=== PATIENT | female | born 2000 | race Caucasian/White ===

== ENCOUNTER 2025-08-15 09:02 | Emergency (ER) | payer OTHER, SELFPAY ==
[2025-08-15 09:04] VITALS: BP 115/70; PULSE 91; RESP 16; TEMP 36.8; O2SAT 99; BMI 31.4
--- NOTE | 2025-08-15 09:23 | CT_ITS ---
PROCEDURE: CTA CHEST W/WO CONTRAST 08/15/2025 REASON FOR EXAM: PULMONARY EMBOLISM TECHNIQUE: Procedure Code: [id number] Modality: CT Procedure: CTA CHEST W/WO CONTRAST Multiplanar Sagittal and Coronal images were obtained. 3D post processing was performed CONTRAST: Isovue 370 VOLUME: 100 mL One or more dose reduction techniques were used (e.g., Automated exposure control, adjustment of the mA and/or kV according to patient size, use of iterative reconstruction technique). RADIATION DOSE SUMMARY: CTDlvol: 29 mGy DLP: 208 mGycm COMPARISON: None # of known CTs in the past 12 months: 0 # of known Cardiac Nuclear Medicine Studies in the past 12 months: 0 FINDINGS: Thoracic Aorta: No evidence of aortic dissection or rupture. Heart: Normal-size. No pericardial effusion Pulmonary Vessels: Timing and quality of the contrast bolus is diagnostic. There is no evidence of acute or chronic pulmonary embolus in the main, central, proximal segmental, interlobar pulmonary arteries. The distal segmental arteries are limited by respiratory motion artifact. Hardware: None Lymph nodes: Reactive subcarinal lymph node is 10 mm in short axis. Lungs and Airways: Respiratory motion artifact. Mucous is shown within the segmental bronchi of the inferior lingula, right middle lobe and both lower lobes with surrounding bronchial wall thickening, subsegmental atelectasis and acinar opacities. Pleura: No pleural effusion or pneumothorax Upper Abdomen: Unremarkable Bones: Unremarkable CT/CTA Chest W/WO Contrast IMPRESSION: 1. No evidence of acute aortic pathology. 2. No evidence of acute or chronic pulmonary embolus centrally and in the prox imal segmental pulmonary arteries. The mid and distal segmental pulmonary arteries are limited by respiratory motion particula rly in the lower lobes. 3. Mild bronchial wall thickening, segmental bronchial mucoid impaction, small airways disease mainly in the lower lobes, inferior lingula and right middle lobe. Favor are mucoid impaction but infecti ous etiologies including atypical organisms like JENNIFER/MAC and fungal infection like coccidioidomycosis are in the differential. Reading Location: [id number]
--- NOTE | 2025-08-15 09:24 | EKG12_ITS ---
Test Reason : CP Blood Pressure : */* mmHG Vent. Rate : 89 BPM Atrial Rate : 89 BPM P-R Int : 182 ms QRS Dur : 96 ms QT Int : 374 ms P-R-T Axes : 37 58 25 degrees QTcB Int : 455 ms Normal sinus rhythm Normal ECG Confirmed by DANO SOARES, KAILEE ([id number]), video editor SILVER ALDRICH ([id number]) on 08/18/2025 6:58:48 AM Referred By: Confirmed By: KAILEE MATSON MD
[2025-08-15 09:34] LABS: Hematocrit 34.2 % (37-47); Hemoglobin 11.1 g/dL (12.0-15.0); Immature Granulocytes Count 0.020 X10^3/uL (0.0-0.0); Mean Corp Hgb Conc 32.5 g/dL (32-36); Mean Corpuscular Volume 89.3 fL (81-99); Mean Platelet Vol. 8.5 fl (6.2-12.0); NRBC Flagged by Analyzer 0 % (0-5); Platelet Count 287 K/mm3 (150-450); RBC Distribution Width CV 15.0 % (11.6-14.6); RBC Distribution Width SD 47.7 fl (35.1-43.9); Red Blood Count 3.83 M/mm3 (4.2-5.4); White Blood Count 6.4 K/mm3 (4.4-11.0)
--- NOTE | 2025-08-15 09:38 | ED.VIS.CHEST ---
HPI History of Present Illness Chief Complaint: Chest Pain Informant: patient and spouse/S.O. Narrative Narrative: 25-year-old female presenting to the emergency room with a chief complaint of left-sided chest pain. Patient states she is about 10 weeks . 2 weeks ago she was diagnosed with right sided pulmonary embolism at [facility]. She was admitted to their hospital and underwent echocardiogram which showed an estimated right atrial pressure of 8 left ventricle with an EF of 50 to 55% no regional wall motion abnormalities. She was eventually transferred to [facility] and discharged home on Lovenox. She states that the pain was sharp and pleuritic on the right side but is now on the left side. She has noted the interval development of a cough that is sometimes productive of a yellow sometimes white sputum. No blood. No reported fevers. She notes the pain in the left side is worse when she goes to lay down. She notes her shortness of breath is significantly improved. She has not required oxygen supplementation. Pain is also worse with movement of her arms deep breathing and touch. She states that she is concerned because the pain is different than before and wanted to be evaluated. She is currently seeing obstetrics at [facility] but has not seen them for this yet. She is G3, P2. She notes the first 2 pregnancies were complicated with lower extremity phlebitis after delivery. I was able to obtain the discharge summary from Yesika rollins [facility] Medical History (Updated 08/15/25 @ 10:[address] Piyush Simpson DO) Pulmonary embolism Home Medications ?Medication ?Instructions ?Recorded ?Last Taken ?Type azithromycin 250 mg tablet See Rx Instructions PO .COMPLEX #6 08/15/25 Unknown Rx (Zithromax) tabs enoxaparin 30 mg/0.3 mL 90 mg subcut Q12H PE 08/15/25 Unknown History subcutaneous syringe (Lovenox) Allergy/AdvReac Type Severity Reaction Status Date / Time No Known Allergies Allergy Verified 08/15/25 09:03 Social History Smoking Status: Never smoker ROS ROS ED Constitutional Constitutional ED: Denies chills, fever(s) or weight loss Eyes Eyes: Denies change in vision or diplopia ENT ENT ED: Denies ear pain, rhinorrhea or sore throat Cardiovascular Cardiovascular: Reports as per HPI and chest pain; Denies orthopnea, palpitations or racing heartbeat Respiratory/Chest Respiratory/Chest: Reports cough, dyspnea and sputum; Denies orthopnea Gastrointestinal Gastrointestinal: Denies abdominal pain, diarrhea, nausea or vomiting Genitourinary Genitourinary ED: Denies dysuria, hematuria or urinary frequency Musculoskeletal Musculoskeletal: Denies arthralgias, back pain or myalgias Integumentary Denies abscess or rash Neurologic Neurologic: Denies headache(s) or weakness Psychiatric Psychiatric: Denies anxiety, depression, suicidal ideation or suicidal thoughts Endocrine Endocrinology: Denies polydipsia, polyphagia or polyuria Allergic/Immunologic Allergic/Immunologic ED: Denies mouth swelling, tongue swelling or urticaria EXAM Physical Exam Const Vital Signs: 08/15/25 09:04 08/15/25 09:30 08/15/25 10:41 Temperature 98.3 F Temperature Source Oral Pulse Rate 91 83 Respiratory Rate 16 18 Respiratory Effort Normal Non-Labored Blood Pressure 115/70 127/63 H Blood Pressure Mean 85 84 Pulse Ox 99 98 Oxygen Delivery Method Room Air Room Air Positive well nourished and well developed General Appearance ED: well developed HEENT Reports normocephalic, head/scalp atraumatic and moist mucous membranes Eyes PERRL and EOMs intact bilaterally Neck no lymphadenopathy, supple and no JVD Chest Wall Chest Narrative: Tender to palpation along the left inferior breast wall. This does seem to reproduce her pain. Patient also reports pain with movement of her arms and twisting. Resp normal respiratory effort and clear to auscultation bilaterally Cardio regular rate, regular rhythm and no murmurs GI normal to inspection, nondistended, normoactive bowel sounds and non-tender Palpation: soft Back/Spine no CVA tenderness and normal ROM Extremity normal to inspection General Extremety ED: Negative for edema General Extremity: Negative for edema Neuro oriented x3 and CN's II-XII intact bilaterally Sensorium / Orientation: alert Motor Exam: strength 5/5 throughout Psych mental status grossly normal Mood & Affect: Negative for depressed or tearful Skin no rashes or lesions noted and no wounds MDM MDM MDM Narrative Medical decision making narrative: Differential diagnosis includes but not limited to recurrent pulmonary embolism pneumonia pleural effusion congestive heart failure pneumonia pleurisy chest wall strain acute coronary syndrome pericardial effusion pericarditis myocarditis Patient is EKG demonstrates a normal sinus rhythm at a rate of 89 bpm. White count 6.4 hemoglobin 11.1 platelet count of 287. Normal LFTs. Normal troponin normal BNP. Creatinine normal 0.50. CTA of the chest does not demonstrate any large pulmonary embolism. There are changes particular the right middle lung in the lingula associated with more of a bronchitis/infectious process. There is no large pleural effusion pericardial effusion noted. Patient remains hemodynamically stable and not requiring supplemental oxygenation. Clinically I do think the patient has more of a pleurisy/chest wall pain on the left. This could impart be due to her coughing. I think it is reasonable nonassisted 2 weeks of cough. We trial some azithromycin. I do not see obvious pneumonia to alter antibiotic choices. Patient was advised on home care as well as follow-up as well as return instructions. Both her and her have no further questions and understand plan of care. History & Record Review Discussion w/independent historian: Patient and Family Additional record(s) reviewed:: Prior outpatient record Lab Data Attestation: I reviewed the patient's lab results. Labs: Laboratory Results - last 24 hr 08/15/25 09:27 WBC 6.4 RBC 3.83 L Hgb 11.1 L Hct 34.2 L MCV 89.3 MCH 29.0 MCHC 32.5 RDW Std Deviation 47.7 H RDW Coeff of [place] 15.0 H Plt Count 287 MPV 8.5 Immature Gran % (Auto) 0.300 Neut % (Auto) 72.1 H Lymph % (Auto) 19.2 [place] % (Auto) 7.2 Eos % (Auto) 0.9 Baso % (Auto) 0.3 Absolute Neuts (auto) 4.6 Absolute Lymphs (auto) 1.23 Nucleated RBC % 0 Sodium 136 Potassium 3.6 Chloride 102 Carbon Dioxide 23.6 Anion Gap 10 BUN 8 Creatinine 0.50 L Estim Creat Clear Calc 204.05 Est GFR (MDRD) Non-Af 133 BUN/Creatinine Ratio 16.6 Glucose 77 Calcium 9.4 Total Bilirubin 0.63 Direct Bilirubin 0.25 AST 18 ALT 24 Alkaline Phosphatase 52 Troponin T High Sens < 6 NT pro BNP II 63 Total Protein 7.4 Albumin 3.6 Globulin 3.8 Radiography Diagnostic Testing: Clinical Impression(s) from Imaging Studies Chest CTA 08/15/25 09:23 IMPRESSION: 1. No evidence of acute aortic pathology. 2. No evidence of acute or chronic pulmonary embolus centrally and in the proximal segmental pulmonary arteries. The mid and distal segmental pulmonary arteries are limited by respiratory motion particularly in the lower lobes. 3. Mild bronchial wall thickening, segmental bronchial mucoid impaction, small airways disease mainly in the lower lobes, inferior lingula and right middle lobe. Favor are mucoid impaction but infectious etiologies including atypical organisms like JENNIFER/MAC and fungal infection like coccidioidomycosis are in the differential. Reading Location: [facility] EKG Initial EKG: Attestation: I personally reviewed and interpreted this EKG as follows: Comments: Normal sinus rhythm ventricular rate of 89 bpm Discharge Plan Triage Chief Complaint: Chest Pain ED Provider: Piyush Simpson Dx/Rx/DC Orders Clinical Impression: Chest pain, , Bronchitis Instructions: ED Pleurisy, ED Chest Wall Strain Prescriptions: New azithromycin [Zithromax] 250 mg tablet See Rx Instructions .ROUTE .COMPLEX Qty: 6 0RF Rx Instructions: For 250 mg dose pack: take 500 mg today (day 1), then 250 mg for 4 days (days 2-5) No Action enoxaparin [Lovenox] 30 mg/0.3 mL syringe 90 mg subcut Q12H Primary Care Provider: Berry Bowser Referrals: NOT,DEFINED [Non-Staff, None] Activity Restrictions/Additional Instructions: Please follow-up with obstetrics as soon as possible Please monitor yourself return if worsening or you have any concerns. Print Language: Ukrainian Disposition Disposition: Home, Self Care
[2025-08-15 09:55] LABS: Troponin T High Sensitivity < 6 ng/L (<=14)
[2025-08-15 09:56] LABS: AST(SGOT) 18 U/L (<=31); Alanine Aminotransfer ALT/SGPT 24 U/L (<=34); Albumin, Serum 3.6 g/dL (3.5-5.0); Alkaline Phosphatase 52 U/L (35-104); Anion Gap 10 (5-15); BUN 8 mg/dL (4-19); BUN/Creat Ratio 16.6 RATIO (10-20); Bilirubin, Direct 0.25 mg/dL (0.00-0.30); Calcium,Total 9.4 mg/dL (7.6-11.0); Carbon Dioxide 23.6 mmol/L (21.0-32.0); Chloride 102 mmol/L (98-108); Estimated Creatinine Clearance 204.05 ml/min (50-250); Globulin 3.8 g/dL (2.2-4.2); Glucose 77 mg/dL (70-99); Potassium 3.6 mmol/L (3.3-5.1); Pro- Brain NATRIURETIC PEPTIDE 63 pg/mL (<=450)
[2025-08-15 10:41] VITALS: BP 127/63; PULSE 83; RESP 18; O2SAT 98
[2025-08-15 10:45] VITALS: BP 127/63; PULSE 83; RESP 18; TEMP 36.6; O2SAT 98
== END 2025-08-15 10:55 | disposition home or self-care (01) ==
PROVIDERS: Emergency Provider Emergency Medicine; PCP Physician Assistant; Visit Provider Emergency Medicine
DX: O99.511 Diseases of the respiratory system complicating pregnancy, first trimester (principal); J40 Bronchitis, not specified as acute or chronic; Z3A.10 10 weeks gestation of pregnancy; O99.891 Other specified diseases and conditions complicating pregnancy; R07.9 Chest pain, unspecified; R06.02 Shortness of breath
CPT/HCPCS: 71275; 80048; 80076; 83880; 84484; 85025; 93005; 99284; Q9967; A4216